=== PATIENT | female | born 1935 | race Caucasian/White ===

== ENCOUNTER 2022-03-06 16:28 | Inpatient (IN) | payer MEDICARE, OTHER ==
[2022-03-06 17:56] VITALS: BMI 31.4
[2022-03-06 18:27] LABS: BASO % 0.8 % (0-2.0); EOS % 3.3 % (0-4.5); HEMATOCRIT 34.5 % (32.4-45.2); HEMOGLOBIN 11.2 GM/dL (10.7-15.3); LYMPH % 39.6 % (8-40); MCH 25.8 pg (25.7-33.7); MCHC 32.5 g/dl (32.0-36.0); MEAN CELL VOLUME 79.5 fl (80-96); MEAN PLT VOLUME 7.6 fl (7.5-11.1); NEUT % 49.3 % (42.8-82.8); PLATELET COUNT 172 10^3/uL (134-434); RBC 4.35 M/mm3 (3.60-5.2); RDW 15.1 % (11.6-15.6); WHITE BLOOD COUNT 5.5 K/mm3 (4.0-10.0)
[2022-03-06 18:38] LABS: ACTIVATED PTT 29.6 SECONDS (25.2-36.5); INR 1.03 (0.83-1.09); PROTHROMBIN TIME (PATIENT) 11.8 SEC (9.7-13.0)
[2022-03-06 18:44] LABS: CHLORIDE 108 mmol/L (98-107); SODIUM 137 mmol/L (136-145)
[2022-03-06 18:47] LABS: ALBUMIN 3.5 g/dl (3.4-5.0); ANION GAP 6 MMOL/L (8-16); BLOOD UREA NITROGEN 22.8 mg/dL (7-18); CALCIUM 8.9 mg/dL (8.5-10.1); CO2 24 mmol/L (21-32); GLUCOSE,RANDOM 160 mg/dL (74-106); LIPASE 166 U/L (73-393)
[2022-03-06 18:49] LABS: CREATININE 1.4 mg/dL (0.55-1.3)
[2022-03-06 18:50] LABS: SGOT/AST 15 U/L (15-37); SGPT/ALT 17 U/L (13-61)
[2022-03-06 18:51] LABS: TOT PROT 6.8 g/dl (6.4-8.2)
[2022-03-06 18:52] LABS: BILIRUBIN,TOTAL 0.5 mg/dL (0.2-1)
[2022-03-06 18:53] LABS: ALK PHOS 67 U/L (45-117)
[2022-03-06] MEDS ORDERED: ASPIRIN 81 MG CHEWABLE TABLETS PO ONE (19:03)
[2022-03-06] MEDS ORDERED: CLOPIDOGREL BISULFATE 75 MG TABLET (FP) PO ONE (19:23)
[2022-03-06] MEDS ORDERED: CARVEDILOL 12.5 MG TABLET (FP) PO ONE (19:34)
[2022-03-06] MEDS ORDERED: CLOPIDOGREL BISULFATE 75 MG TABLET (FP) ONE (20:18)
[2022-03-06] MEDS ORDERED: CARVEDILOL 12.5 MG TABLET (FP) ONE (20:18)
[2022-03-06] MEDS ORDERED: ASPIRIN 81 MG CHEWABLE TABLETS ONE (20:18)
[2022-03-07] MEDS ORDERED: ASPIRIN COATED 81 MG TABLET.EC ONE (09:37)
[2022-03-07] MEDS ORDERED: CLOPIDOGREL BISULFATE 75 MG TABLET (FP) ONE (09:37)
[2022-03-07] MEDS ORDERED: VALSARTAN 80 MG TABLET ONE (09:37)
[2022-03-07] MEDS ORDERED: metoPROLOL SUCCINATE 25 MG TAB.SR.24H (FP) ONE (09:37)
[2022-03-07] MEDS: metoPROLOL SUCCINATE 25 MG TAB.SR.24H (FP) PO SCH (09:43)
[2022-03-07] MEDS: VALSARTAN 80 MG TABLET PO SCH (09:43)
[2022-03-07] MEDS: CLOPIDOGREL BISULFATE 75 MG TABLET (FP) PO SCH (09:43)
[2022-03-07] MEDS: ASPIRIN COATED 81 MG TABLET.EC PO SCH (09:43)
[2022-03-07 10:40] LABS: PH,URINE 5.5 (5.0-8.0); URINE APPEARANCE CLEAR; URINE BILIRUBIN NEGATIVE (NEGATIVE); URINE COLOR YELLOW; URINE GLUCOSE (UA) NEGATIVE (NEGATIVE); URINE KETONE NEGATIVE (NEGATIVE); URINE LEUK ESTERASE NEGATIVE (NEGATIVE); URINE NITRITE NEGATIVE (NEGATIVE); URINE PROTEIN NEGATIVE (NEGATIVE); URINE UROBILINOGEN 0.2 mg/dL (0.2-1.0)
[2022-03-07 17:16] LABS: BASO % 0.8 % (0-2.0); EOS % 2.6 % (0-4.5); HEMATOCRIT 36.9 % (32.4-45.2); HEMOGLOBIN 11.7 GM/dL (10.7-15.3); LYMPH % 32.6 % (8-40); MCHC 31.9 g/dl (32.0-36.0); MEAN CELL VOLUME 78.6 fl (80-96); MEAN PLT VOLUME 7.2 fl (7.5-11.1); MONO % 7.1 % (3.8-10.2); NEUT % 56.9 % (42.8-82.8); PLATELET COUNT 194 10^3/uL (134-434); RBC 4.69 M/mm3 (3.60-5.2); RDW 14.9 % (11.6-15.6); WHITE BLOOD COUNT 5.6 K/mm3 (4.0-10.0)
[2022-03-07 17:36] LABS: CHLORIDE 110 mmol/L (98-107); SODIUM 140 mmol/L (136-145)
[2022-03-07 17:39] LABS: ANION GAP 6 MMOL/L (8-16); CALCIUM 9.2 mg/dL (8.5-10.1); CO2 24 mmol/L (21-32); GLUCOSE,RANDOM 207 mg/dL (74-106)
[2022-03-07 17:40] LABS: ALBUMIN 3.3 g/dl (3.4-5.0); BLOOD UREA NITROGEN 22.1 mg/dL (7-18)
[2022-03-07 17:42] LABS: CREATININE 1.3 mg/dL (0.55-1.3); SGOT/AST 16 U/L (15-37); SGPT/ALT 18 U/L (13-61)
[2022-03-07 17:43] LABS: CHOLESTEROL 236 mg/dL (50-200); TRIGLYCERIDES 184 mg/dL (0-150)
[2022-03-07 17:44] LABS: BILIRUBIN,TOTAL 0.3 mg/dL (0.2-1); LDL CHOLESTEROL (ONLY SJRH) 139 mg/dL (5-100); TOT PROT 6.9 g/dl (6.4-8.2)
[2022-03-07 17:45] LABS: ALK PHOS 72 U/L (45-117); HDL CHOLESTEROL 51 mg/dL (40-60)
[2022-03-07] MEDS ORDERED: ATORVASTATIN CA 80 MG TABLET (FP) ONE (22:30)
[2022-03-07] MEDS: ATORVASTATIN CA 80 MG TABLET (FP) PO SCH (23:07)
[2022-03-08] MEDS: ASPIRIN COATED 81 MG TABLET.EC PO SCH (09:17)
[2022-03-08] MEDS: VALSARTAN 80 MG TABLET PO SCH (09:17)
[2022-03-08] MEDS: CLOPIDOGREL BISULFATE 75 MG TABLET (FP) PO SCH (09:17)
[2022-03-08] MEDS: metoPROLOL SUCCINATE 25 MG TAB.SR.24H (FP) PO SCH (09:17)
[2022-03-08] MEDS: ATORVASTATIN CA 80 MG TABLET (FP) PO SCH (21:39)
[2022-03-08] MEDS: MELATONIN 5 MG TABLETS PO SCH (21:40)
[2022-03-09] MEDS: ASPIRIN COATED 81 MG TABLET.EC PO SCH (09:11)
[2022-03-09] MEDS: VALSARTAN 80 MG TABLET PO SCH (09:11)
[2022-03-09] MEDS: CLOPIDOGREL BISULFATE 75 MG TABLET (FP) PO SCH (09:11)
[2022-03-09] MEDS: MELATONIN 5 MG TABLETS PO SCH (21:17)
[2022-03-09] MEDS: ATORVASTATIN CA 80 MG TABLET (FP) PO SCH (21:18)
[2022-03-10] MEDS: INSULIN SLIDING SCALE (NOVOLOG) 1 VIAL SQ SCH ×2 (07:25→13:24)
[2022-03-10] MEDS: VALSARTAN 80 MG TABLET PO SCH (09:40)
[2022-03-10] MEDS ORDERED: REGADENOSON 0.4 MG/5 ML PRE-FILLED SYRINGE IVPUSH ONE ×2 (10:19→11:15)
[2022-03-10] MEDS: ASPIRIN COATED 81 MG TABLET.EC PO SCH (13:23)
[2022-03-10] MEDS: CLOPIDOGREL BISULFATE 75 MG TABLET (FP) PO SCH (13:23)
[2022-03-10 14:40] VITALS: BP 153/77; PULSE 64; TEMP 97.5
== END 2022-03-10 16:46 | disposition home or self-care (01) | DRG 281 ==
LOC: JER 16:28 → JERBED 19:34 → J4W 03-08 00:13
PROVIDERS: ADMIT Internal Medicine; ATTEND Family Medicine
DX: I21.4 Non-ST elevation (NSTEMI) myocardial infarction (principal); I13.0 Hypertensive heart and chronic kidney disease with heart failure and stage 1 through stage 4 chronic kidney disease, or unspecified chronic kidney disease; I50.32 Chronic diastolic (congestive) heart failure; E78.5 Hyperlipidemia, unspecified; N18.1 Chronic kidney disease, stage 1; E11.22 Type 2 diabetes mellitus with diabetic chronic kidney disease; K21.9 Gastro-esophageal reflux disease without esophagitis; M54.50 Low back pain, unspecified
CPT/HCPCS: 36415; 71045-TC-FY; 78452-TC; 80053; 80061; 81003; 82962; 83036; 83690; 83735; 84443; 84484; 85025; 85610; 85730; 87086; 93005; 93010; 93017; 93306-TC; 99285-25; A9502; C9803-CS; J2785; U0003; U0005

== ENCOUNTER 2022-06-17 17:27 | Observation (INO) | payer MEDICARE, OTHER ==
[2022-06-17 17:50] VITALS: BMI 31.1
[2022-06-17] MEDS ORDERED: ASPIRIN 81 MG CHEWABLE TABLETS PO ONE (18:01)
[2022-06-17] MEDS ORDERED: ASPIRIN 81 MG CHEWABLE TABLETS ONE (18:09)
[2022-06-17 18:13] LABS: BASO % 0.8 % (0-2.0); EOS % 2.8 % (0-4.5); HEMATOCRIT 36.6 % (32.4-45.2); HEMOGLOBIN 12.2 GM/dL (10.7-15.3); LYMPH % 36.4 % (8-40); MCH 26.6 pg (25.7-33.7); MCHC 33.3 g/dl (32.0-36.0); MEAN PLT VOLUME 7.5 fl (7.5-11.1); MONO % 7.3 % (3.8-10.2); NEUT % 52.7 % (42.8-82.8); PLATELET COUNT 185 10^3/uL (134-434); RBC 4.57 M/mm3 (3.60-5.2); RDW 15.3 % (11.6-15.6); WHITE BLOOD COUNT 6.7 K/mm3 (4.0-10.0)
[2022-06-17 18:24] LABS: INR 1.01 (0.83-1.09); PROTHROMBIN TIME (PATIENT) 11.6 SEC (9.7-13.0)
[2022-06-17 18:26] LABS: ACTIVATED PTT 27.4 SECONDS (25.2-36.5)
[2022-06-17 18:35] LABS: ALBUMIN 3.4 g/dl (3.4-5.0); BLOOD UREA NITROGEN 32.7 mg/dL (7-18); CALCIUM 8.9 mg/dL (8.5-10.1)
[2022-06-17 18:38] LABS: CREATININE 1.5 mg/dL (0.55-1.3)
[2022-06-17 18:40] LABS: TOT PROT 6.6 g/dl (6.4-8.2)
[2022-06-17 18:41] LABS: BILIRUBIN,TOTAL 0.3 mg/dL (0.2-1)
[2022-06-17] MEDS ORDERED: ACETAMINOPHEN 1000 MG/100 ML BAG IVPB ONE (20:10)
[2022-06-17] MEDS ORDERED: DOCUSATE SODIUM 100 MG CAPSULE (FP) PO PRN (20:15)
[2022-06-17] MEDS ORDERED: FAMOTIDINE 20 MG/50 ML IVPB 20 MG/50 ML MG IVPB ONE ×2 (20:17→20:26)
[2022-06-17] MEDS: INSULIN SLIDING SCALE (NOVOLOG) 1 VIAL SQ SCH (22:39)
[2022-06-18] MEDS ORDERED: HEPARIN NA (PORCINE) 5,000 UNITS/ML 1ML VIAL IVPUSH PRN ×2 (02:46)
[2022-06-18] MEDS ORDERED: CLOPIDOGREL BISULFATE 300 MG TABLET PO ONE (02:48)
[2022-06-18] MEDS ORDERED: HEPARIN - 25,000 UNIT in SODIUM CHLORIDE 495 ML IV SCH (03:00)
[2022-06-18] MEDS ORDERED: ACETAMINOPHEN 1000 MG/100 ML BAG IVPB PRN (03:00)
[2022-06-18] MEDS ORDERED: HEPARIN INFUSION - 25,000 UNITS/500 ML INFUS.BAG IVPB ONE (03:05)
[2022-06-18] MEDS ORDERED: LORazepam 2 MG/ML SDV VIAL IVPUSH ONE ×2 (05:50→09:25)
[2022-06-18] MEDS ORDERED: HYDROmorphone HCL CARPU-JECT 2 MG/1 ML DISP.SYRIN IVPB ONE (06:35)
[2022-06-18] MEDS ORDERED: HALOPERIDOL LACTATE 5 MG/ML IM ONE (06:37)
[2022-06-18 06:54] VITALS: RESP 18
[2022-06-18] MEDS: INSULIN SLIDING SCALE (NOVOLOG) 1 VIAL SQ SCH ×3 (07:08→16:57)
[2022-06-18 09:12] LABS: EOS % 3.3 % (0-4.5); HEMATOCRIT 38.1 % (32.4-45.2); HEMOGLOBIN 11.9 GM/dL (10.7-15.3); LYMPH % 31.7 % (8-40); MCH 25.3 pg (25.7-33.7); MCHC 31.3 g/dl (32.0-36.0); MEAN CELL VOLUME 80.7 fl (80-96); MEAN PLT VOLUME 7.9 fl (7.5-11.1); MONO % 5.5 % (3.8-10.2); NEUT % 58.5 % (42.8-82.8); PLATELET COUNT 187 10^3/uL (134-434); RBC 4.72 M/mm3 (3.60-5.2); RDW 15.1 % (11.6-15.6); WHITE BLOOD COUNT 5.8 K/mm3 (4.0-10.0)
[2022-06-18 09:28] LABS: BLOOD UREA NITROGEN 30.4 mg/dL (7-18); CALCIUM 8.9 mg/dL (8.5-10.1); MAGNESIUM 2.1 mg/dL (1.8-2.4)
[2022-06-18 09:31] LABS: CREATININE 1.3 mg/dL (0.55-1.3)
[2022-06-18] MEDS ORDERED: PANTOPRAZOLE 40 MG TABLET PO SCH (10:00)
[2022-06-18] MEDS ORDERED: VALSARTAN 80 MG TABLET PO SCH (10:00)
[2022-06-18] MEDS ORDERED: CLOPIDOGREL BISULFATE 75 MG TABLET (FP) PO SCH (10:00)
[2022-06-18] MEDS ORDERED: ASPIRIN COATED 81 MG TABLET.EC PO SCH (10:00)
[2022-06-18 14:27] LABS: INR 1.03 (0.83-1.09); PROTHROMBIN TIME (PATIENT) 11.9 SEC (9.7-13.0)
[2022-06-18 14:29] LABS: ACTIVATED PTT 78.9 SECONDS (25.2-36.5)
[2022-06-18 18:32] VITALS: BP 154/100; PULSE 71; TEMP 97.2
[2022-06-18] MEDS ORDERED: ATORVASTATIN CA 80 MG TABLET (FP) PO SCH (22:00)
[2022-06-18] MEDS ORDERED: MELATONIN 5 MG TABLETS PO SCH (22:00)
[2022-06-19] MEDS ORDERED: ACETAMINOPHEN 325 MG TABLET (FP) PO PRN (03:00)
== END 2022-06-18 21:00 | disposition short-term general hospital (02) ==
LOC: JER 17:27 → JERBED 18:01 → J4S 06-18 05:14
PROVIDERS: ADMIT Internal Medicine; ATTEND Family Medicine
PROC: 3E033NZ Introduction of Analgesics, Hypnotics, Sedatives into Peripheral Vein, Percutaneous Approach (ICD-10-PCS; principal; 2022-06-17)
PROC: 3E023GC Introduction of Other Therapeutic Substance into Muscle, Percutaneous Approach (ICD-10-PCS; 2022-06-17)
PROC: 3E033GC Introduction of Other Therapeutic Substance into Peripheral Vein, Percutaneous Approach (ICD-10-PCS; 2022-06-17)
PROC: 3E013VG Introduction of Insulin into Subcutaneous Tissue, Percutaneous Approach (ICD-10-PCS; 2022-06-17)
DX: I21.4 Non-ST elevation (NSTEMI) myocardial infarction (principal); I11.0 Hypertensive heart disease with heart failure; E66.8 Other obesity; Z68.31 Body mass index [BMI] 31.0-31.9, adult; Z29.8 Encounter for other specified prophylactic measures; I10 Essential (primary) hypertension; Z86.79 Personal history of other diseases of the circulatory system; E78.5 Hyperlipidemia, unspecified; R77.8 Other specified abnormalities of plasma proteins; E11.9 Type 2 diabetes mellitus without complications; I25.2 Old myocardial infarction; R00.0 Tachycardia, unspecified; Z88.0 Allergy status to penicillin
CPT/HCPCS: 0241U-QW; 36415; 70450-TC; 71045-TC-FY; 80048; 80053; 82962; 83735; 84484; 85025; 85610; 85730; 93005; 93010; 96365; 96372; 96375; 96376; 99285-25; G0378; J1644

== ENCOUNTER 2022-07-28 12:28 | Observation (INO) | payer MEDICARE, OTHER ==
[2022-07-28 14:14] LABS: HEMOGLOBIN 11.4 GM/dL (10.7-15.3); MCH 25.7 pg (25.7-33.7); MCHC 31.6 g/dl (32.0-36.0); MEAN CELL VOLUME 81.3 fl (80-96); MEAN PLT VOLUME 7.5 fl (7.5-11.1); PLATELET COUNT 192 10^3/uL (134-434); RBC 4.43 M/mm3 (3.60-5.2); RDW 15.3 % (11.6-15.6); WHITE BLOOD COUNT 5.8 K/mm3 (4.0-10.0)
[2022-07-28 14:24] LABS: INR 1.03 (0.83-1.09); PROTHROMBIN TIME (PATIENT) 11.8 SEC (9.7-13.0)
[2022-07-28 14:27] LABS: ACTIVATED PTT 28.8 SECONDS (25.2-36.5)
[2022-07-28 14:33] LABS: ALBUMIN 3.4 g/dl (3.4-5.0)
[2022-07-28 14:36] LABS: CREATININE 1.4 mg/dL (0.55-1.3)
[2022-07-28 14:38] LABS: BILIRUBIN,TOTAL 0.5 mg/dL (0.2-1); TOT PROT 6.7 g/dl (6.4-8.2)
[2022-07-28] MEDS ORDERED: ACETAMINOPHEN 325 MG TABLET (FP) PO PRN (16:36)
[2022-07-28 17:05] LABS: MAGNESIUM 2.1 mg/dL (1.8-2.4)
[2022-07-28] MEDS ORDERED: ATORVASTATIN CA 80 MG TABLET (FP) PO SCH (22:00)
[2022-07-28] MEDS: INSULIN SLIDING SCALE (NOVOLOG) 1 VIAL SQ SCH (22:07)
[2022-07-29 00:48] VITALS: BMI 25.0
[2022-07-29] MEDS: INSULIN SLIDING SCALE (NOVOLOG) 1 VIAL SQ SCH ×2 (06:40→12:19)
[2022-07-29] MEDS ORDERED: glipiZIDE-XL 2.5 MG TAB.ER.24 PO SCH (07:00)
[2022-07-29] MEDS ORDERED: VALSARTAN 40 MG TABLET PO SCH (10:00)
[2022-07-29] MEDS ORDERED: ASPIRIN COATED 81 MG TABLET.EC PO SCH (10:00)
[2022-07-29] MEDS ORDERED: PANTOPRAZOLE 40 MG TABLET PO SCH (10:00)
[2022-07-29] MEDS ORDERED: CLOPIDOGREL BISULFATE 75 MG TABLET (FP) PO SCH (10:00)
[2022-07-29 12:53] VITALS: BP 140/70; PULSE 58; RESP 18; TEMP 97.8
== END 2022-07-29 13:02 | disposition home or self-care (01) ==
LOC: JER 12:28 → UNDOADMOB 16:32 → INTOOBSV 16:32 → JERBED 16:32 → J4W 20:37 → JERBED 20:37 → UNDODISOB 07-29 13:02
PROVIDERS: ADMIT Family Medicine; ATTEND Family Medicine
DX: E11.9 Type 2 diabetes mellitus without complications (principal); I10 Essential (primary) hypertension; E78.2 Mixed hyperlipidemia; N17.9 Acute kidney failure, unspecified; M62.81 Muscle weakness (generalized); R45.1 Restlessness and agitation; I21.4 Non-ST elevation (NSTEMI) myocardial infarction; R55 Syncope and collapse; Z88.0 Allergy status to penicillin
CPT/HCPCS: 36415; 71045-TC-FY; 80053; 82728; 82962; 83540; 83550; 83735; 84443; 84484; 85027; 85610; 85730; 93005; 93010; 99285-25; C9803-CS; G0378; U0003; U0005

== ENCOUNTER 2022-08-17 20:13 | Inpatient (IN) | payer OTHER ==
[2022-08-17 21:03] VITALS: BMI 22.3
[2022-08-17 21:25] LABS: BASO % 0.5 % (0-2.0); EOS % 2.5 % (0-4.5); HEMATOCRIT 35.4 % (32.4-45.2); HEMOGLOBIN 11.5 GM/dL (10.7-15.3); LYMPH % 36.9 % (8-40); MCHC 32.6 g/dl (32.0-36.0); MEAN CELL VOLUME 79.9 fl (80-96); MEAN PLT VOLUME 7.3 fl (7.5-11.1); MONO % 7.7 % (3.8-10.2); NEUT % 52.4 % (42.8-82.8); PLATELET COUNT 184 10^3/uL (134-434); RBC 4.43 M/mm3 (3.60-5.2); RDW 14.9 % (11.6-15.6); WHITE BLOOD COUNT 6.6 K/mm3 (4.0-10.0)
[2022-08-17] MEDS ORDERED: ASPIRIN 81 MG CHEWABLE TABLETS PO ONE (21:29)
[2022-08-17] MEDS ORDERED: ASPIRIN 81 MG CHEWABLE TABLETS ONE (21:32)
[2022-08-17 22:02] LABS: BLOOD UREA NITROGEN 26.9 mg/dL (7-18); CALCIUM 8.9 mg/dL (8.5-10.1)
[2022-08-17 22:03] LABS: ALBUMIN 3.4 g/dl (3.4-5.0)
[2022-08-17 22:06] LABS: CREATININE 1.3 mg/dL (0.55-1.3)
[2022-08-17 22:07] LABS: BILIRUBIN,TOTAL 0.2 mg/dL (0.2-1); TOT PROT 6.6 g/dl (6.4-8.2)
[2022-08-17 22:19] LABS: INR 0.96 (0.83-1.09)
[2022-08-17 22:21] LABS: ACTIVATED PTT 29.3 SECONDS (25.2-36.5)
[2022-08-18] MEDS ORDERED: HEPARIN NA (PORCINE) 5,000 UNITS/ML 1ML VIAL IVPUSH PRN ×2 (02:32)
[2022-08-18] MEDS: HEPARIN SOD,PORK IN 0.45% NACL 25,000 UNIT/500 ML INFUS.BAG IVPB SCH ×2 (03:15→12:40)
[2022-08-18 05:08] LABS: PHOSPHOROUS 2.6 mg/dL (2.5-4.9)
[2022-08-18] MEDS: INSULIN SLIDING SCALE (NOVOLOG) 1 VIAL SQ SCH ×4 (06:28→21:28)
[2022-08-18] MEDS: amLODIPine BESYLATE 5 MG TABLET (FP) PO SCH (09:34)
[2022-08-18] MEDS: PANTOPRAZOLE 40 MG TABLET PO SCH (09:35)
[2022-08-18] MEDS: CLOPIDOGREL BISULFATE 75 MG TABLET (FP) PO SCH (09:35)
[2022-08-18] MEDS: LOSARTAN POTASSIUM 50 MG TABLET PO SCH (09:36)
[2022-08-18] MEDS ORDERED: VALSARTAN 80 MG TABLET PO SCH (10:00)
[2022-08-18 11:59] LABS: EOS % 2.1 % (0-4.5); HEMATOCRIT 35.1 % (32.4-45.2); HEMOGLOBIN 11.5 GM/dL (10.7-15.3); LYMPH % 38.2 % (8-40); MCH 26.3 pg (25.7-33.7); MCHC 32.8 g/dl (32.0-36.0); MEAN CELL VOLUME 80.2 fl (80-96); MEAN PLT VOLUME 7.6 fl (7.5-11.1); MONO % 5.9 % (3.8-10.2); NEUT % 52.8 % (42.8-82.8); PLATELET COUNT 196 10^3/uL (134-434); RBC 4.38 M/mm3 (3.60-5.2); RDW 14.9 % (11.6-15.6); WHITE BLOOD COUNT 6.1 K/mm3 (4.0-10.0)
[2022-08-18 14:29] LABS: ANION GAP 10 MMOL/L (8-16); BLOOD UREA NITROGEN 24.4 mg/dL (7-18); CALCIUM 9.2 mg/dL (8.5-10.1); CHLORIDE 108 mmol/L (98-107); CO2 23 mmol/L (21-32); CREATININE 1.3 mg/dL (0.55-1.3); GLUCOSE,RANDOM 123 mg/dL (74-106); SODIUM 141 mmol/L (136-145)
[2022-08-18] MEDS: MELATONIN 5 MG TABLETS PO SCH (21:18)
[2022-08-18] MEDS: ATORVASTATIN CA 80 MG TABLET (FP) PO SCH (21:18)
[2022-08-19] MEDS: INSULIN SLIDING SCALE (NOVOLOG) 1 VIAL SQ SCH ×4 (06:53→21:04)
[2022-08-19] MEDS: HEPARIN SOD,PORK IN 0.45% NACL 25,000 UNIT/500 ML INFUS.BAG IVPB SCH (06:53)
[2022-08-19] MEDS: CLOPIDOGREL BISULFATE 75 MG TABLET (FP) PO SCH (09:52)
[2022-08-19] MEDS: LOSARTAN POTASSIUM 50 MG TABLET PO SCH (09:52)
[2022-08-19] MEDS: PANTOPRAZOLE 40 MG TABLET PO SCH (09:52)
[2022-08-19] MEDS: amLODIPine BESYLATE 5 MG TABLET (FP) PO SCH (09:53)
[2022-08-19] MEDS: ATORVASTATIN CA 80 MG TABLET (FP) PO SCH (21:05)
[2022-08-19] MEDS: MELATONIN 5 MG TABLETS PO SCH (21:05)
[2022-08-20 02:03] VITALS: RESP 18
[2022-08-20] MEDS: HEPARIN SOD,PORK IN 0.45% NACL 25,000 UNIT/500 ML INFUS.BAG IVPB SCH (03:26)
[2022-08-20] MEDS: INSULIN SLIDING SCALE (NOVOLOG) 1 VIAL SQ SCH ×4 (06:02→23:39)
[2022-08-20 08:59] LABS: HEMATOCRIT 33.5 % (32.4-45.2); HEMOGLOBIN 11.1 GM/dL (10.7-15.3); MCH 26.5 pg (25.7-33.7); MEAN CELL VOLUME 80.4 fl (80-96); MEAN PLT VOLUME 7.6 fl (7.5-11.1); PLATELET COUNT 176 10^3/uL (134-434); RBC 4.17 M/mm3 (3.60-5.2); RDW 14.8 % (11.6-15.6); WHITE BLOOD COUNT 5.5 K/mm3 (4.0-10.0)
[2022-08-20] MEDS: LOSARTAN POTASSIUM 50 MG TABLET PO SCH (09:26)
[2022-08-20] MEDS: PANTOPRAZOLE 40 MG TABLET PO SCH (09:26)
[2022-08-20] MEDS: amLODIPine BESYLATE 5 MG TABLET (FP) PO SCH (09:26)
[2022-08-20] MEDS: CLOPIDOGREL BISULFATE 75 MG TABLET (FP) PO SCH (09:26)
[2022-08-20] MEDS: MELATONIN 5 MG TABLETS PO SCH (23:30)
[2022-08-20] MEDS: ATORVASTATIN CA 80 MG TABLET (FP) PO SCH (23:30)
[2022-08-21] MEDS: HEPARIN SOD,PORK IN 0.45% NACL 25,000 UNIT/500 ML INFUS.BAG IVPB SCH ×2 (03:00→09:09)
[2022-08-21] MEDS: INSULIN SLIDING SCALE (NOVOLOG) 1 VIAL SQ SCH ×2 (06:12→11:22)
[2022-08-21 08:51] LABS: HEMATOCRIT 34.3 % (32.4-45.2); HEMOGLOBIN 11.2 GM/dL (10.7-15.3); MCH 26.6 pg (25.7-33.7); MCHC 32.7 g/dl (32.0-36.0); MEAN CELL VOLUME 81.2 fl (80-96); MEAN PLT VOLUME 7.7 fl (7.5-11.1); PLATELET COUNT 177 10^3/uL (134-434); RBC 4.22 M/mm3 (3.60-5.2); RDW 14.8 % (11.6-15.6); WHITE BLOOD COUNT 5.1 K/mm3 (4.0-10.0)
[2022-08-21] MEDS: CLOPIDOGREL BISULFATE 75 MG TABLET (FP) PO SCH (09:06)
[2022-08-21] MEDS: amLODIPine BESYLATE 5 MG TABLET (FP) PO SCH (09:06)
[2022-08-21] MEDS: LOSARTAN POTASSIUM 50 MG TABLET PO SCH (09:06)
[2022-08-21] MEDS: PANTOPRAZOLE 40 MG TABLET PO SCH (09:06)
[2022-08-21 09:23] LABS: ALBUMIN 3.4 g/dl (3.4-5.0); BLOOD UREA NITROGEN 27.7 mg/dL (7-18); CALCIUM 9.2 mg/dL (8.5-10.1)
[2022-08-21 09:26] LABS: CREATININE 1.5 mg/dL (0.55-1.3)
[2022-08-21 09:27] LABS: TOT PROT 6.4 g/dl (6.4-8.2)
[2022-08-21 09:28] LABS: BILIRUBIN,TOTAL 0.6 mg/dL (0.2-1)
[2022-08-21 11:02] LABS: ANISOCYTOSIS 0; HELMET CELLS 0; HOWELL-JOLLY BODIES 0; MACROCYTOSIS 0; OVALOCYTE 0; ROULEAU 0; SICKELED CELLS 0; TARGET CELLS 0; TEAR DROP CELLS 0; TOXIC GRANULATION 0
[2022-08-21] MEDS ORDERED: ATORVASTATIN CA 40 MG TABLET (FP) PO SCH (13:45)
[2022-08-21] MEDS ORDERED: RANOLAZINE E.R. 500 MG TABLET (FP) PO SCH (14:00)
[2022-08-21 14:58] VITALS: BP 141/62; PULSE 61; TEMP 97.9
== END 2022-08-21 16:12 | disposition home or self-care (01) | DRG 281 ==
LOC: JER 20:13 → JERBED 23:58 → OBSVTOIN 08-18 02:08 → J4S 08-18 02:08
PROVIDERS: ADMIT Internal Medicine; ATTEND Family Medicine
DX: I21.4 Non-ST elevation (NSTEMI) myocardial infarction (principal); I13.0 Hypertensive heart and chronic kidney disease with heart failure and stage 1 through stage 4 chronic kidney disease, or unspecified chronic kidney disease; I50.32 Chronic diastolic (congestive) heart failure; R07.9 Chest pain, unspecified; E78.5 Hyperlipidemia, unspecified; E11.9 Type 2 diabetes mellitus without complications; I25.10 Atherosclerotic heart disease of native coronary artery without angina pectoris; N18.9 Chronic kidney disease, unspecified; K21.9 Gastro-esophageal reflux disease without esophagitis
CPT/HCPCS: 0241U-QW; 36415; 71045-TC-FY; 80048; 80053; 82962; 83735; 84100; 84484; 85025; 85027; 85610; 85730; 93005; 93010; 99285-25; G0378

== ENCOUNTER 2022-08-27 08:24 | Inpatient (IN) | payer OTHER ==
[2022-08-27] MEDS ORDERED: ONDANSETRON 4 MG/2 ML VIAL IVPUSH ONE (08:38)
[2022-08-27] MEDS ORDERED: FAMOTIDINE 20 MG/50 ML IVPB 20 MG/50 ML MG IVPB ONE ×3 (08:38→09:36)
[2022-08-27] MEDS ORDERED: LACTATED RINGERS SOLUTION 1000 ML INFUS.BAG IV ONE ×2 (08:38→09:28)
[2022-08-27] MEDS ORDERED: ONDANSETRON 4 MG/2 ML VIAL ONE (08:39)
[2022-08-27 08:48] VITALS: BMI 22.1
[2022-08-27 09:20] LABS: BASO % 0.6 % (0-2.0); EOS % 1.9 % (0-4.5); HEMATOCRIT 40.1 % (32.4-45.2); HEMOGLOBIN 12.8 GM/dL (10.7-15.3); LYMPH % 41.1 % (8-40); MCH 25.6 pg (25.7-33.7); MCHC 31.8 g/dl (32.0-36.0); MEAN CELL VOLUME 80.5 fl (80-96); MEAN PLT VOLUME 8.1 fl (7.5-11.1); MONO % 6.8 % (3.8-10.2); NEUT % 49.6 % (42.8-82.8); PLATELET COUNT 223 10^3/uL (134-434); RBC 4.99 M/mm3 (3.60-5.2); RDW 15.1 % (11.6-15.6); VENOUS BASE EXCESS -0.7 mmol/L (-2-2); VENOUS O2 SATURATION 85.9 % (70-80); VENOUS PCO2 34.2 mmHg (38-52); VENOUS PH 7.442 (7.310-7.410); WHITE BLOOD COUNT 6.3 K/mm3 (4.0-10.0)
[2022-08-27 09:26] LABS: SODIUM 138 mmol/L (136-145)
[2022-08-27 09:28] LABS: CALCIUM 9.7 mg/dL (8.5-10.1)
[2022-08-27] MEDS ORDERED: METOCLOPRAMIDE HCL INJECTION 10 MG/2 ML VIAL IVPUSH ONE (09:28)
[2022-08-27 09:29] LABS: ALBUMIN 3.8 g/dl (3.4-5.0); BLOOD UREA NITROGEN 32.4 mg/dL (7-18); CO2 22 mmol/L (21-32); GLUCOSE,RANDOM 197 mg/dL (74-106); MAGNESIUM 2.1 mg/dL (1.8-2.4)
[2022-08-27 09:32] LABS: CREATININE 1.7 mg/dL (0.55-1.3); SGOT/AST 32 U/L (15-37); SGPT/ALT 28 U/L (13-61)
[2022-08-27 09:34] LABS: BILIRUBIN,TOTAL 0.9 mg/dL (0.2-1); TOT PROT 7.4 g/dl (6.4-8.2)
[2022-08-27 09:35] LABS: ALK PHOS 66 U/L (45-117)
[2022-08-27] MEDS ORDERED: METOCLOPRAMIDE HCL INJECTION 10 MG/2 ML VIAL ONE (09:36)
[2022-08-27 09:37] LABS: N-TERMINAL BNP 1332.4 pg/ml (5-450)
[2022-08-27 09:43] LABS: ANION GAP 11 MMOL/L (8-16); CHLORIDE 105 mmol/L (98-107)
[2022-08-27 09:46] LABS: ACTIVATED PTT 29.3 SECONDS (25.2-36.5); INR 0.97 (0.83-1.09); PROTHROMBIN TIME (PATIENT) 11.2 SEC (9.7-13.0)
[2022-08-27 10:49] LABS: BLOOD UREA NITROGEN 30.7 mg/dL (7-18); CALCIUM 9.4 mg/dL (8.5-10.1)
[2022-08-27 10:52] LABS: CREATININE 1.5 mg/dL (0.55-1.3)
[2022-08-27] MEDS ORDERED: ONDANSETRON 4 MG/2 ML VIAL IVPUSH PRN (20:41)
[2022-08-27] MEDS ORDERED: RANOLAZINE E.R. 500 MG TABLET (FP) ONE (22:02)
[2022-08-27] MEDS ORDERED: ATORVASTATIN CA 40 MG TABLET (FP) ONE (22:02)
[2022-08-27] MEDS ORDERED: HEPARIN NA (PORCINE) 5,000 UNITS/ML 1ML VIAL ONE (22:02)
[2022-08-27] MEDS: HEPARIN NA (PORCINE) 5,000 UNITS/ML 1ML VIAL SQ SCH (22:30)
[2022-08-27] MEDS: RANOLAZINE E.R. 500 MG TABLET (FP) PO SCH (22:30)
[2022-08-27] MEDS: ATORVASTATIN CA 80 MG TABLET (FP) PO SCH (22:30)
[2022-08-28 07:49] LABS: BASO % 0.5 % (0-2.0); EOS % 1.4 % (0-4.5); HEMATOCRIT 33.8 % (32.4-45.2); HEMOGLOBIN 10.9 GM/dL (10.7-15.3); LYMPH % 34.8 % (8-40); MCH 25.6 pg (25.7-33.7); MCHC 32.2 g/dl (32.0-36.0); MEAN CELL VOLUME 79.6 fl (80-96); MONO % 6.5 % (3.8-10.2); NEUT % 56.8 % (42.8-82.8); PLATELET COUNT 206 10^3/uL (134-434); RBC 4.25 M/mm3 (3.60-5.2); RDW 15.1 % (11.6-15.6); WHITE BLOOD COUNT 6.7 K/mm3 (4.0-10.0)
[2022-08-28 08:31] LABS: CALCIUM 9.4 mg/dL (8.5-10.1)
[2022-08-28 08:32] LABS: ALBUMIN 3.4 g/dl (3.4-5.0); BLOOD UREA NITROGEN 24.2 mg/dL (7-18)
[2022-08-28 08:34] LABS: CREATININE 1.5 mg/dL (0.55-1.3)
[2022-08-28 08:35] LABS: BILIRUBIN,TOTAL 0.7 mg/dL (0.2-1); TOT PROT 6.3 g/dl (6.4-8.2)
[2022-08-28] MEDS: PANTOPRAZOLE 40 MG TABLET PO SCH (10:26)
[2022-08-28] MEDS: HEPARIN NA (PORCINE) 5,000 UNITS/ML 1ML VIAL SQ SCH ×3 (10:27→21:05)
[2022-08-28] MEDS: RANOLAZINE E.R. 500 MG TABLET (FP) PO SCH ×2 (10:27→21:03)
[2022-08-28] MEDS: CLOPIDOGREL BISULFATE 75 MG TABLET (FP) PO SCH (10:27)
[2022-08-28] MEDS: ASPIRIN COATED 81 MG TABLET.EC PO SCH (10:27)
[2022-08-28] MEDS: amLODIPine BESYLATE 5 MG TABLET (FP) PO SCH (10:27)
[2022-08-28] MEDS: ATORVASTATIN CA 80 MG TABLET (FP) PO SCH (21:03)
[2022-08-29] MEDS: PANTOPRAZOLE 40 MG TABLET PO SCH (10:10)
[2022-08-29] MEDS: RANOLAZINE E.R. 500 MG TABLET (FP) PO SCH ×2 (10:10→22:34)
[2022-08-29] MEDS: CLOPIDOGREL BISULFATE 75 MG TABLET (FP) PO SCH (10:10)
[2022-08-29] MEDS: ASPIRIN COATED 81 MG TABLET.EC PO SCH (10:11)
[2022-08-29] MEDS: amLODIPine BESYLATE 5 MG TABLET (FP) PO SCH (10:11)
[2022-08-29] MEDS: HEPARIN NA (PORCINE) 5,000 UNITS/ML 1ML VIAL SQ SCH ×2 (10:14→22:33)
[2022-08-29] MEDS: ATORVASTATIN CA 80 MG TABLET (FP) PO SCH (22:33)
[2022-08-30] MEDS: ASPIRIN COATED 81 MG TABLET.EC PO SCH (10:16)
[2022-08-30] MEDS: amLODIPine BESYLATE 5 MG TABLET (FP) PO SCH (10:16)
[2022-08-30] MEDS: CLOPIDOGREL BISULFATE 75 MG TABLET (FP) PO SCH (10:17)
[2022-08-30] MEDS: HEPARIN NA (PORCINE) 5,000 UNITS/ML 1ML VIAL SQ SCH (10:17)
[2022-08-30] MEDS: PANTOPRAZOLE 40 MG TABLET PO SCH (10:17)
[2022-08-30] MEDS: RANOLAZINE E.R. 500 MG TABLET (FP) PO SCH (10:17)
[2022-08-30 10:24] VITALS: RESP 18
[2022-08-30 14:48] VITALS: BP 118/70; PULSE 60; TEMP 97.8
== END 2022-08-30 14:52 | disposition home or self-care (01) | DRG 312 ==
LOC: JER 08:24 → JERBED 11:34 → J4W 08-28 03:04
PROVIDERS: ADMIT Family Medicine; ATTEND Family Medicine
DX: R55 Syncope and collapse (principal); N17.9 Acute kidney failure, unspecified; I13.0 Hypertensive heart and chronic kidney disease with heart failure and stage 1 through stage 4 chronic kidney disease, or unspecified chronic kidney disease; I50.32 Chronic diastolic (congestive) heart failure; I25.2 Old myocardial infarction; R11.2 Nausea with vomiting, unspecified; E78.5 Hyperlipidemia, unspecified; N18.9 Chronic kidney disease, unspecified; J98.4 Other disorders of lung; I25.10 Atherosclerotic heart disease of native coronary artery without angina pectoris; K21.9 Gastro-esophageal reflux disease without esophagitis; E11.65 Type 2 diabetes mellitus with hyperglycemia; E11.22 Type 2 diabetes mellitus with diabetic chronic kidney disease; G30.9 Alzheimer's disease, unspecified; F02.80 Dementia in other diseases classified elsewhere, unspecified severity, without behavioral disturbance, psychotic disturbance, mood disturbance, and anxiety; D32.9 Benign neoplasm of meninges, unspecified
CPT/HCPCS: 0241U-QW; 36415; 70450-TC; 71045-TC-FY; 71250-TC; 80048; 80053; 82803; 82962; 83036; 83735; 83880; 84443; 84484; 85025; 85610; 85730; 86850; 86900; 86901; 93005; 93010; 93306-TC; 97116-GP; 97161-GP; 99285-25; J1644

== ENCOUNTER 2024-01-03 15:23 | Observation (INO) | payer OTHER ==
[2024-01-03 17:28] LABS: BASO % 0.8 % (0-2.0); EOS % 1.9 % (0-4.5); HEMATOCRIT 34.6 % (32.4-45.2); HEMOGLOBIN 11.3 GM/dL (10.7-15.3); LYMPH % 37.2 % (8-40); MCH 25.6 pg (25.7-33.7); MCHC 32.6 g/dl (32.0-36.0); MEAN CELL VOLUME 78.5 fl (80-96); MEAN PLT VOLUME 7.7 fl (7.5-11.1); MONO % 6.9 % (3.8-10.2); NEUT % 53.2 % (42.8-82.8); PLATELET COUNT 194 10^3/uL (134-434); RBC 4.41 M/mm3 (3.60-5.2); RDW 15.5 % (11.6-15.6); WHITE BLOOD COUNT 7.1 K/mm3 (4.0-10.0)
[2024-01-03 17:36] LABS: POTASSIUM 3.7 mmol/L (3.5-5.1)
[2024-01-03 17:37] LABS: ALBUMIN 3.2 g/dl (3.4-5.0); BLOOD UREA NITROGEN 24.2 mg/dL (7-18); CALCIUM 9.2 mg/dL (8.5-10.1)
[2024-01-03 17:38] LABS: MAGNESIUM 1.9 mg/dL (1.8-2.4)
[2024-01-03 17:42] LABS: CREATININE 1.4 mg/dL (0.55-1.3)
[2024-01-03 17:43] LABS: BILIRUBIN,TOTAL 0.5 mg/dL (0.2-1); TOT PROT 6.6 g/dl (6.4-8.2)
[2024-01-03] MEDS ORDERED: MECLIZINE HCL 25 MG TABLET (FP) ONE (19:10)
[2024-01-03] MEDS: MECLIZINE HCL 25 MG TABLET (FP) PO ONE (19:14)
[2024-01-03 19:37] LABS: EPI CELLS 5 /uL (0-25.1); HYALINE CASTS 0 /uL (0-3.1); PH,URINE 7.5 (5.0-8.0); URINE APPEARANCE CLEAR; URINE BACTERIA 176 /uL (0-1359); URINE BILIRUBIN NEGATIVE (NEGATIVE); URINE COLOR YELLOW; URINE GLUCOSE (UA) NEGATIVE (NEGATIVE); URINE KETONE NEGATIVE (NEGATIVE); URINE LEUK ESTERASE 3+ (NEGATIVE); URINE NITRITE NEGATIVE (NEGATIVE); URINE PROTEIN NEGATIVE (NEGATIVE); URINE RBC 11 /uL (0-23.9); URINE UROBILINOGEN 0.2 mg/dL (0.2-1.0); URINE WBC 223 /uL (0-25.8)
[2024-01-03] MEDS ORDERED: ACETAMINOPHEN 325 MG TABLET (FP) PO PRN (22:03)
[2024-01-03] MEDS ORDERED: DOCUSATE SODIUM 100 MG CAPSULE (FP) PO PRN (22:03)
[2024-01-04] MEDS: INSULIN ASPART SLIDING SCALE (NOVOLOG) 1 VIAL SQ SCH (06:22)
[2024-01-04 07:52] LABS: POTASSIUM 3.8 mmol/L (3.5-5.1)
[2024-01-04 08:10] LABS: MAGNESIUM 1.9 mg/dL (1.8-2.4); PHOSPHOROUS 3.8 mg/dL (2.5-4.9)
[2024-01-04 08:13] LABS: CREATININE 1.4 mg/dL (0.55-1.3)
[2024-01-04 08:29] LABS: CALCIUM 9.6 mg/dL (8.5-10.1)
[2024-01-04 08:33] LABS: BASO % 0.5 % (0-2.0); EOS % 2.9 % (0-4.5); HEMATOCRIT 38.3 % (32.4-45.2); HEMOGLOBIN 12.4 GM/dL (10.7-15.3); LYMPH % 38.2 % (8-40); MCH 25.5 pg (25.7-33.7); MCHC 32.5 g/dl (32.0-36.0); MEAN CELL VOLUME 78.5 fl (80-96); MEAN PLT VOLUME 8.7 fl (7.5-11.1); MONO % 8.1 % (3.8-10.2); NEUT % 50.3 % (42.8-82.8); PLATELET COUNT 184 10^3/uL (134-434); RBC 4.88 M/mm3 (3.60-5.2); RDW 15.9 % (11.6-15.6); WHITE BLOOD COUNT 7.6 K/mm3 (4.0-10.0)
[2024-01-04] MEDS: ASPIRIN COATED 81 MG TABLET.EC PO SCH (10:22)
[2024-01-04] MEDS: CLOPIDOGREL BISULFATE 75 MG TABLET (FP) PO SCH (10:22)
[2024-01-04] MEDS: amLODIPine BESYLATE 5 MG TABLET (FP) PO SCH (10:22)
[2024-01-04] MEDS: PANTOPRAZOLE 20 MG TABLET PO SCH (11:45)
[2024-01-04] MEDS: RANOLAZINE E.R. 500 MG TABLET (FP) PO SCH (11:45)
[2024-01-04] MEDS: MELATONIN 5 MG TABLETS PO SCH (21:38)
[2024-01-04] MEDS: ATORVASTATIN CA 80 MG TABLET (FP) PO SCH (21:38)
[2024-01-05] MEDS ORDERED: INSULIN (NOVOLOG) ASPART 100 UNITS/ML 10ML VIAL ONE (10:58)
[2024-01-06] MEDS: amLODIPine BESYLATE 5 MG TABLET (FP) PO SCH (09:04)
[2024-01-06] MEDS ORDERED: ACETAMINOPHEN 325 MG TABLET (FP) PO PRN (16:02)
[2024-01-06] MEDS ORDERED: DOCUSATE SODIUM 100 MG CAPSULE (FP) PO PRN (16:02)
[2024-01-06] MEDS: INSULIN ASPART SLIDING SCALE (NOVOLOG) 1 VIAL SQ SCH (16:43)
[2024-01-06] MEDS: ATORVASTATIN CA 80 MG TABLET (FP) PO SCH (22:08)
[2024-01-06] MEDS: RANOLAZINE E.R. 500 MG TABLET (FP) PO SCH (22:08)
[2024-01-06] MEDS: MELATONIN 5 MG TABLETS PO SCH (22:08)
[2024-01-07] MEDS: ASPIRIN COATED 81 MG TABLET.EC PO SCH (10:23)
[2024-01-07] MEDS: PANTOPRAZOLE 20 MG TABLET PO SCH (10:24)
[2024-01-07] MEDS: CLOPIDOGREL BISULFATE 75 MG TABLET (FP) PO SCH (10:24)
[2024-01-07] MEDS: amLODIPine BESYLATE 5 MG TABLET (FP) PO SCH (10:24)
[2024-01-08 16:01] VITALS: BMI 23.6
[2024-01-09 12:35] VITALS: BP 138/56; PULSE 57; RESP 18; TEMP 98.2
== END 2024-01-09 12:30 ==
LOC: JER 15:23 → JERBED 18:47 → J4W 01-04 00:56 → J5S 01-06 15:54
PROVIDERS: ADMIT Internal Medicine; ATTEND Family Medicine
PROC: 3E013VG Introduction of Insulin into Subcutaneous Tissue, Percutaneous Approach (ICD-10-PCS; principal; 2024-01-03)
PROC: 3E03329 Introduction of Other Anti-infective into Peripheral Vein, Percutaneous Approach (ICD-10-PCS; 2024-01-03)
DX: I12.9 Hypertensive chronic kidney disease with stage 1 through stage 4 chronic kidney disease, or unspecified chronic kidney disease (principal); I25.10 Atherosclerotic heart disease of native coronary artery without angina pectoris; I50.9 Heart failure, unspecified; I11.0 Hypertensive heart disease with heart failure; E78.5 Hyperlipidemia, unspecified; N28.9 Disorder of kidney and ureter, unspecified; E11.59 Type 2 diabetes mellitus with other circulatory complications; I25.2 Old myocardial infarction; K21.9 Gastro-esophageal reflux disease without esophagitis; F03.90 Unspecified dementia, unspecified severity, without behavioral disturbance, psychotic disturbance, mood disturbance, and anxiety; Z90.49 Acquired absence of other specified parts of digestive tract; G89.29 Other chronic pain; M54.50 Low back pain, unspecified; R42 Dizziness and giddiness; Z88.0 Allergy status to penicillin
CPT/HCPCS: 36415; 71045-TC-FY; 80048; 80053; 81003; 82962; 83735; 84100; 84443; 84484; 85025; 87086; 87186; 87635; 93005; 93010; 96365; 96366; 96372; 97116-GP; 97161-GP; 99285-25; G0378